=== PATIENT | female | born 1975 | race Caucasian/White ===

== ENCOUNTER 2020-01-06 09:26 | Emergency (ER) | payer OTHER ==
[~2020-01-06] VITALS: Ht 175.3 cm; Wt 70.0 kg
[2020-01-06] MEDS ORDERED: FLUORESCEIN 1MG EYE STRIP. ONE (09:38)
[2020-01-06 09:40] VITALS: BP 123/73
[2020-01-06] MEDS ORDERED: CIPR2.5D OS (10:05)
--- NOTE | 2020-01-06 10:14 | PHYS DOC ---
Past History Past Medical History: No Pertinent History Past Surgical History: Other Additional Past Surgical Histo: LASIK Alcohol Use: None Adult General Chief Complaint Chief Complaint: EYE PROBLEMS HPI HPI Patient is a 44 year old female who presents with right eye pain and change in vision. Patient states she used a wooden eyeliner pencil last night and developed pain shortly thereafter. She thinks she scratched her eye with a pencil. She has been having quite a bit of pain since that happened and states she is got some double vision when she tries to read her phone. She states that if she is not trying to look at her phone she does not have double vision. She has chronic decreased vision in the right eye versus the left eye as she got Lasix in her left eye a couple years ago but not her right eye. She denies any drainage from the eye. She used some erythromycin ointment that they had left over to put in the eye. She states that this burned but did not help. Review of Systems Review of Systems General: Denies fever, chills, sweats, fatigue Eyes reports eye pain, blurred vision HENT: Denies rhinorrhea, sore throat, earache Respiratory: Denies cough, shortness of breath, wheezing Cardiac: Denies edema, palpitations, chest pain GI: Denies abdominal pain, Nausea, vomiting MSK: Denies back pain, neck pain Skin: Denies rash, jaundice Neuro: Denies headache, dizziness Psychiatric: Denies SI/HI Current Medications Current Medications Current Medications Medications (Trade) Dose Ordered Sig/Melvi Start Time Stop Time Status Last Admin Dose Admin Fluorescein Sodium (Ful-Irish 1mg) 1 strip STK-MED ONCE 01/06/20 09:38 01/06/20 09:38 DC Allergies Allergies Allergies Coded Allergies Type Severity Reaction Last Updated Verified No Known Drug Allergies 01/06/20 No Physical Exam Physical Exam General: Awake, alert, NAD. Well Nourished, well hydrated. Cooperative HEENT: Atraumatic, airway patent, moist oral mucosa, EOMI, PERRL Right eye: mild conjunctiva injection, on fluorescein exam small abrasion at 7 o'clock, no sign of foreign body, iris appears normal, anterior chamber appears normal Neck: Supple, trachea midline Respiratory: CTA bilaterally, normal effort, no wheezing/crackles CV: RRR, no murmur, cap refill <2 GI: Soft, nondistended, nontender, no masses MSK: No obvious deformities Skin: Warm, dry, intact Neuro: A&O x3, speech NL, sensory and motor grossly intact, no focal deficits Psych: Normal affect, normal mood, not suicidal or homicidal Current Patient Data Vital Signs Vital Signs Date Time Temp Pulse Resp B/P (MAP) Pulse Ox O2 Delivery O2 Flow Rate FiO2 01/06/20 09:40 98.2 56 16 123/73 (90) 98 Room Air EKG EKG [] Radiology/Procedures Radiology/Procedures [] Course & Med Decision Making Course & Med Decision Making Pertinent Labs and Imaging studies reviewed. (See chart for details) Patient is a 44-year-old female who presents to the emergency room complaining of right eye pain. Patient does not have an open globe. She has full range of motion of her eye. The eyelids appear normal. She is minor conjunctival injection. On fluoroscopic exam she has a small abrasion which will be treated with ciprofloxacin drops. Patient will be referred to ophthalmology for visual issues. Patient's test results and vitals while in the ED were fully reviewed and discussed with the patient. Patient is stable and at this time does not need admission to the hospital. We have discussed strict return precautions and the importance of following up with their Primary Care Physician. Patient stated understanding and was given an opportunity to ask any questions. Patient is in agreement with plan. Dragon Disclaimer Dragon Disclaimer This electronic medical record was generated, in whole or in part, using a voice recognition dictation system. Departure Departure: Impression: Primary Impression: Corneal abrasion Disposition: HOME/RESIDENCE PRIOR TO ADM Condition: STABLE Referrals: SOFY DIANA (PCP) AIMEE PATINO DO Patient Instructions: Eye - Corneal Abrasion Additional Instructions: Please follow up with Dr Patino today or tomorrow Scripts Ciprofloxacin Hcl (CIPROFLOXACIN HCL) 2.5 Ml Drops 1 DROP OS QID for corneal for 7 Days, #5 ML 0 Refills Prov: WILLIAMS CASTLE MD 01/06/20 Justification of Admission: Justification of Admission: Justification of Admission Dx: No WILLIAMS CASTLE MD Jan 06, 2020 10:14
== END 2020-01-06 10:26 | disposition home or self-care (01) ==
LOC: ER 09:26
DX: S05.01XA Injury of conjunctiva and corneal abrasion without foreign body, right eye, initial encounter (principal); W22.8XXA Striking against or struck by other objects, initial encounter; Y93.89 Activity, other specified; Y92.89 Other specified places as the place of occurrence of the external cause; Y99.8 Other external cause status
CPT/HCPCS: 99283

== ENCOUNTER 2020-03-14 10:56 | Emergency (ER) | payer OTHER ==
[~2020-03-14] VITALS: Ht 175.3 cm; Wt 71.7 kg
[~2020-03-14 10:56] MED LIST: CIPR2.5D2 OS
--- NOTE | 2020-03-14 11:27 | PHYS DOC ---
Past History Past Medical History: No Pertinent History Past Surgical History: Other Additional Past Surgical Histo: LASIK Alcohol Use: None General Adult EDM: Chief Complaint: ABDOMINAL PAIN HPI: HPI: 45-year-old female presents with abdominal pain. The patient was diagnosed with a UTI and is on antibiotics. This is day 7 of antibiotics but she still has a lot of urinary frequency. She developed some sharp pain in the epigastric area last night. It is improved at this time but she has a kind of generalized dull ache. She was sent here by [facility] for evaluation. Patient denies nausea or vomiting. She did have an episode of diarrhea last night but she thinks this is likely due to eating spicy food yesterday. She denies fever or chills. Review of Systems: Review of Systems: Constitutional: Denies fever or chills Eyes: Denies change in visual acuity HENT: Denies nasal congestion or sore throat Respiratory: Denies cough or shortness of breath Cardiovascular: Denies chest pain or edema GI: Epigastric abdominal pain, diarrhea. Denies nausea, vomiting, bloody stools : Urinary frequency Musculoskeletal: Denies back pain or joint pain Integument: Denies rash Neurologic: Denies headache, focal weakness or sensory changes Endocrine: Denies polyuria or polydipsia Lymphatic: Denies swollen glands Psychiatric: Denies depression or anxiety Heart Score: Risk Factors: Risk Factors: DM, Current or recent (<one month) smoker, HTN, HLP, family history of CAD, obesity. Risk Scores: Score 0 - 3: 2.5% MACE over next 6 weeks - Discharge Home Score 4 - 6: 20.3% MACE over next 6 weeks - Admit for Clinical Observation Score 7 - 10: 72.7% MACE over next 6 weeks - Early Invasive Strategies Allergies: Allergies: Allergies Coded Allergies Type Severity Reaction Last Updated Verified No Known Drug Allergies 01/06/20 No Physical Exam: PE: Constitutional: Well developed, well nourished, no acute distress, non-toxic appearance. [] HENT: Normocephalic, atraumatic, bilateral external ears normal, oropharynx moist, no oral exudates, nose normal. [] Eyes: PERRLA, EOMI, conjunctiva normal, no discharge. [] Neck: Normal range of motion, no tenderness, supple, no stridor. [] Cardiovascular: Heart rate regular rhythm, no murmur [] Lungs & Thorax: Bilateral breath sounds clear to auscultation [] Abdomen: Bowel sounds normal, soft, mild epigastric and left lower quadrant tenderness, no masses, no pulsatile masses. [] Skin: Warm, dry, no erythema, no rash. [] Back: No tenderness, no CVA tenderness. [] Extremities: No tenderness, no cyanosis, no clubbing, ROM intact, no edema. [] Neurologic: Alert and oriented X 3, normal motor function, normal sensory function, no focal deficits noted. [] Psychologic: Affect normal, judgement normal, mood normal. [] Current Patient Data: Vital Signs: Vital Signs Date Time Temp Pulse Resp B/P (MAP) Pulse Ox O2 Delivery O2 Flow Rate FiO2 03/14/20 11:04 98.4 56 16 123/74 (90) 99 Room Air EKG: EKG: [] Radiology/Procedures: Radiology/Procedures: [] Impressions: PQRS Compliance Statement: One or more of the following individualized dose reduction techniques were utilized for this examination: 1. Automated exposure control 2. Adjustment of the mA and/or kV according to patient size 3. Use of iterative reconstruction technique CT abdomen/pelvis with contrast 03/14/2020 11:19 AM INDICATION: Epigastric and left lower quadrant abdominal pain COMPARISON: None available TECHNIQUE: Multiple axial CT images of the abdomen and pelvis were obtained after the intravenous administration of nonionic contrast. Coronal and sagittal reformats are provided. FINDINGS: Lung bases are clear. Heart size is within normal limits. There is a hypoenhancing lesion within the inferior lateral segment left hepatic lobe, segment III, measuring 1.8 x 2.0 cm (series 2, image 21). There is an additional hypoenhancing hepatic lesion in the inferior segment right hepatic lobe, segment V measuring 1.2 x 1.1 cm (series 2, image 26). These findings are indeterminate and could represent hepatic hemangiomas in the absence of underlying malignancy. Further catheterization with abdominal MRI with and without contrast is recommended. Spleen, bilateral adrenal glands and pancreas are normal in appearance. Gallbladder is present without adjacent inflammation. Abdominal aorta is normal in course and caliber. There are no pathologically enlarged lymph nodes within the abdomen and pelvis. Small volume pelvic free fluid is present. Fluid-filled small bowel loops are identified within the deep pelvis. No dilated loops of small or large bowel. Appendix is normal in appearance. There is a simple renal cyst in inferior pole left kidney measuring 5.9 cm. No suspicious renal mass. No hydronephrosis. Urinary bladder is within normal limits given degree of distention. There is thickening and ill-definition of the cervix, nonspecific and could be associated with menstrual cycle. IUD is in appropriate position. No suspicious adnexal mass. There are adnexal varices bilaterally, left greater than right. Small volume pelvic free fluid. No suspicious osseous abnormality. Moderate disc height loss at L5-S1. IMPRESSION: 1. Small volume pelvic free fluid is identified, greater than expected with physiologic changes. There is ill-definition of the cervix, nonspecific and may be associated with menstrual phase. If there is persistent clinical concern, further evaluation with direct visualization or pelvic ultrasound could be of benefit. 2. Bilateral adnexal varices, left greater than right. 3. Indeterminate hepatic lesions measuring up to 1.8 x 2.0 cm in segment III of the left hepatic lobe. Further catheterization with abdominal MRI with and without contrast is recommended. 4. No bowel obstruction or inflammation. Appendix is normal in appearance. 5. Inferior pole left renal cyst measures 5.9 cm, Bosniak 1. Electronically signed by: Zach Bar MD (03/14/2020 12:03 PM) [id number] DICTATED AND SIGNED BY: ZACH BAR MD DATE: 03/14/20 1203 CC: RAMON POON DO; SOFY DIANA N ~ INDICATION: Reason: ABNORMAL CT / Spl. Instructions: / History: Prominent vessels in the adnexa and pelvic free fluid COMPARISON: CT from same day TECHNIQUE: Grayscale and color ultrasound images uterus and adnexa. Transabdominal and transvaginal images obtained. Transvaginal images were needed to better visualize structures that were limited on transabdominal imaging. FINDINGS: Uterus: 111 x 79 x 52 mm. Endometrial Stripe: Intrauterine device is seen. Right Ovary: 39 x 28 x 25 mm. Vascular flow is seen. 33 x 24 mm cystic lesion. The left ovary is not well seen Multiple hypoechoic lesions near the cervix. Prominent vessels in the adnexa. Within the left adnexa there is a complex region seen within the fluid which measures up to about 25 x 7 mm. IMPRESSION: * Right ovarian cyst is identified. * Multiple hypoechoic lesions near the cervical region which could be secondary to nabothian cyst formation. The ill-defined low density region seen at the lower uterine segment on CT is not as well-seen on ultrasound. Would be difficult to exclude causes such as edema from cervicitis or lesion in the area. * Prominent vessels in the bilateral adnexa. Would correlate with symptoms to ensure this is not secondary to causes such as pelvic congestion. * Free fluid is identified with a suspected nonsimple component. This could be from a component of debris or blood within but the patient will need follow-up to ensure that there is not a mass contributing to this appearance. Given the presence of these findings if not already obtained would consider obtaining hCG to exclude other causes such as ectopic. Electronically signed by: Rakel Huang MD (03/14/2020 1:46 PM) [id number] DICTATED AND SIGNED BY: RAKEL HUANG MD DATE: 03/14/20 1346 CC: RAMON POON DO; SOFY DIANA ~ Course & Med Decision Making: Course & Med Decision Making Pertinent Labs and Imaging studies reviewed. (See chart for details) The patient's labs are unremarkable. Her urinalysis is negative for infection. Her CT scan had several findings. See official read for more details. Most acute appears to be an excess amount of free fluid in the pelvis. I have ordered an ultrasound for clarification. The ultrasound has also been on several findings. See official read for details. I went over all these results with the patient at length. I am unsure of the exact meaning of these different results. I advised that she follow-up with [facility], her primary care physician, and possibly GI for further evaluation of the findings. She states verbal understanding. She is stable for discharge at this time. [] Dragon Disclaimer: Dragon Disclaimer: This electronic medical record was generated, in whole or in part, using a voice recognition dictation system. Departure Departure: Impression: Primary Impression: Pelvic pain Disposition: 01 DC HOME SELF CARE/HOMELESS Condition: STABLE Referrals: SOFY DIANA (PCP) Patient Instructions: Pelvic Pain, Female, [id number] RAMON POON DO Mar 14, 2020 11:27
[2020-03-14] MEDS ORDERED: IOHEXOL 300 MG/ML 75 ML VIAL. IV ONE (11:30)
[2020-03-14 11:56] LABS: BASO % 0 % (0-3); EOS % 1 % (0-3); HEMATOCRIT 42.1 % (36.0-47.0); HEMOGLOBIN 13.8 g/dL (12.0-15.5); LYMPH # 0.9 x10^3/uL (1.0-4.8); LYMPH % 21 % (24-48); MEAN CORPUSCULAR HEMOGLOBIN 30 pg (25-35); MEAN CORPUSCULAR HGB CONC 33 g/dL (31-37); MEAN CORPUSCULAR VOLUME 92 fL (79-100); MONO # 0.4 x10^3/uL (0.0-1.1); MONO % 10 % (0-9); NEUT % 67 % (31-73); PLATELET COUNT 213 x10^3/uL (140-400); RED BLOOD COUNT 4.59 x10^6/uL (3.50-5.40); RED CELL DISTRIBUTION WIDTH 14.1 % (11.5-14.5); WHITE BLOOD COUNT 4.4 x10^3/uL (4.0-11.0)
[2020-03-14] MEDS ORDERED: FAMOTIDINE 20 MG/2 ML VIAL IVP ONE (12:00)
[2020-03-14 12:04] LABS: CALCIUM 9.2 mg/dL (8.5-10.1); CREATININE 1.1 mg/dL (0.6-1.0); GFR 53.5; POTASSIUM 4.3 mmol/L (3.5-5.1)
--- NOTE | 2020-03-14 12:06 | RAD ---
PQRS Compliance Statement: One or more of the following individualized dose reduction techniques were utilized for this examination: 1. Automated exposure control 2. Adjustment of the mA and/or kV according to patient size 3. Use of iterative reconstruction technique CT abdomen/pelvis with contrast 03/14/2020 11:19 AM INDICATION: Epigastric and left lower quadrant abdominal pain COMPARISON: None available TECHNIQUE: Multiple axial CT images of the abdomen and pelvis were obtained after the intravenous administration of nonionic contrast. Coronal and sagittal reformats are provided. FINDINGS: Lung bases are clear. Heart size is within normal limits. There is a hypoenhancing lesion within the inferior lateral segment left hepatic lobe, segment III, measuring 1.8 x 2.0 cm (series 2, image 21). There is an additional hypoenhancing hepatic lesion in the inferior segment right hepatic lobe, segment V measuring 1.2 x 1.1 cm (series 2, image 26). These findings are indeterminate and could represent hepatic hemangiomas in the absence of underlying malignancy. Further catheterization with abdominal MRI with and without contrast is recommended. Spleen, bilateral adrenal glands and pancreas are normal in appearance. Gallbladder is present without adjacent inflammation. Abdominal aorta is normal in course and caliber. There are no pathologically enlarged lymph nodes within the abdomen and pelvis. Small volume pelvic free fluid is present. Fluid-filled small bowel loops are identified within the deep pelvis. No dilated loops of small or large bowel. Appendix is normal in appearance. There is a simple renal cyst in inferior pole left kidney measuring 5.9 cm. No suspicious renal mass. No hydronephrosis. Urinary bladder is within normal limits given degree of distention. There is thickening and ill-definition of the cervix, nonspecific and could be associated with menstrual cycle. IUD is in appropriate position. No suspicious adnexal mass. There are adnexal varices bilaterally, left greater than right. Small volume pelvic free fluid. No suspicious osseous abnormality. Moderate disc height loss at L5-S1. IMPRESSION: 1. Small volume pelvic free fluid is identified, greater than expected with physiologic changes. There is ill-definition of the cervix, nonspecific and may be associated with menstrual phase. If there is persistent clinical concern, further evaluation with direct visualization or pelvic ultrasound could be of benefit. 2. Bilateral adnexal varices, left greater than right. 3. Indeterminate hepatic lesions measuring up to 1.8 x 2.0 cm in segment III of the left hepatic lobe. Further catheterization with abdominal MRI with and without contrast is recommended. 4. No bowel obstruction or inflammation. Appendix is normal in appearance. 5. Inferior pole left renal cyst measures 5.9 cm, Bosniak 1. Electronically signed by: Tamia Amado MD (03/14/2020 12:03 PM) [id number]
[2020-03-14 12:12] LABS: ALBUMIN 3.7 g/dL (3.4-5.0); ALBUMIN/GLOBULIN RATIO 1.1 (1.0-1.7); TOTAL BILIRUBIN 0.3 mg/dL (0.2-1.0); TOTAL PROTEIN 7.1 g/dL (6.4-8.2)
[2020-03-14 12:26] LABS: BACTERIA,URINE FEW /HPF (0-FEW); BILIRUBIN,URINE NEG (NEG); CLARITY,URINE HAZY; COLOR,URINE STRAW; GLUCOSE,URINE NEG (NEG); NITRITE,URINE NEG (NEG); RBC,URINE OCC /HPF (0-2); SQUAMOUS EPITHELIAL CELL,UR MOD /LPF; UROBILINOGEN,URINE 0.2 mg/dL (0.2 mg/dL)
--- NOTE | 2020-03-14 13:49 | RAD ---
INDICATION: Reason: ABNORMAL CT / Spl. Instructions: / History: Prominent vessels in the adnexa and pelvic free fluid COMPARISON: CT from same day TECHNIQUE: Grayscale and color ultrasound images uterus and adnexa. Transabdominal and transvaginal images obtained. Transvaginal images were needed to better visualize structures that were limited on transabdominal imaging. FINDINGS: Uterus: 111 x 79 x 52 mm. Endometrial Stripe: Intrauterine device is seen. Right Ovary: 39 x 28 x 25 mm. Vascular flow is seen. 33 x 24 mm cystic lesion. The left ovary is not well seen Multiple hypoechoic lesions near the cervix. Prominent vessels in the adnexa. Within the left adnexa there is a complex region seen within the fluid which measures up to about 25 x 7 mm. IMPRESSION: * Right ovarian cyst is identified. * Multiple hypoechoic lesions near the cervical region which could be secondary to nabothian cyst formation. The ill-defined low density region seen at the lower uterine segment on CT is not as well-seen on ultrasound. Would be difficult to exclude causes such as edema from cervicitis or lesion in the area. * Prominent vessels in the bilateral adnexa. Would correlate with symptoms to ensure this is not secondary to causes such as pelvic congestion. * Free fluid is identified with a suspected nonsimple component. This could be from a component of debris or blood within but the patient will need follow-up to ensure that there is not a mass contributing to this appearance. Given the presence of these findings if not already obtained would consider obtaining hCG to exclude other causes such as ectopic. Electronically signed by: Vance Pollard MD (03/14/2020 1:46 PM) [id number]
[2020-03-14 15:25] VITALS: BP 122/70
== END 2020-03-14 15:27 | disposition home or self-care (01) ==
LOC: ER 10:56
DX: R10.2 Pelvic and perineal pain (principal); R19.7 Diarrhea, unspecified; R35.0 Frequency of micturition
CPT/HCPCS: 36415; 74177; 76830; 76856; 80053; 81001; 81025; 85025; 96374; 99285; J3490; Q9967